=== PATIENT | female | born 1985 | race Two or more races ===

== ENCOUNTER 2025-05-14 19:34 | Emergency (ER) | payer MEDICAID, SELFPAY ==
[2025-05-14 19:36] VITALS: BMI 34.0
[2025-05-14 20:24] VITALS: BP 121/79; PULSE 92; RESP 18; TEMP 37; O2SAT 98
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
[2025-05-14] MEDS: DIAZEPAM 5 MG TABLET PO (21:51)
[2025-05-14] MEDS: KETOROLAC INJ 30 MG/ML VIAL IM (21:52)
[2025-05-14 22:09] LABS: HCG Qualitative,Urine Negative
[2025-05-14 22:38] LABS: HCG,Qualitative Serum Negative
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
[2025-05-14 23:13] VITALS: RESP 18
== END 2025-05-14 23:14 | disposition home or self-care (01) ==
PROVIDERS: Physician Assistant; Emergency Provider Emergency Medicine
DX: S29.012A Strain of muscle and tendon of back wall of thorax, initial encounter (principal); S06.0XAA Concussion with loss of consciousness status unknown, initial encounter; V89.2XXA Person injured in unspecified motor-vehicle accident, traffic, initial encounter; Y92.410 Unspecified street and highway as the place of occurrence of the external cause
CPT/HCPCS: 36415; 72125; 81025; 84703; 96372; 99283; J1885; A9270